=== PATIENT | female | born 1955 | race American Indian/Alaskan Native ===

== ENCOUNTER 2020-07-30 23:08 | Inpatient (IN) | payer MEDICAID, MEDICARE ==
[2020-07-31] MEDS ORDERED: Sodium Chloride 0.9% 10 ML Syringe FLUSH PRN (00:29)
[2020-07-31] MEDS ORDERED: Acetaminophen 325 MG Tab PO PRN (00:29)
[2020-07-31] MEDS ORDERED: diphenhydrAMINE 25 MG Cap PO PRN (00:41)
[2020-07-31] MEDS ORDERED: Piperacillin/Tazobactam 3.375 GM in Sodium Chloride 0.9% 50 ML IV SCH ×2 (00:45→03:30)
[2020-07-31] MEDS ORDERED: 50% Dextrose in Water 50 ML Syringe IVPUSH PRN ×2 (00:55→11:39)
[2020-07-31] MEDS ORDERED: Glucagon,Human Recombinant 1 MG Vial IM PRN ×2 (00:55→11:39)
[2020-07-31] MEDS ORDERED: Sodium Chloride 0.9% 50 ML ONE (02:46)
--- NOTE | 2020-07-31 07:14 | HP ---
CHIEF COMPLAINT: Shortness of breath, sore throat. HISTORY OF PRESENT ILLNESS: A 65-year-old. For the last 9 days, she has had fatigue, then developed a sore throat which had her go into the [facility]. Did test positive for COVID. She was noted to be slightly hypoxic and they did put her on oxygen. Because of this, they did want her put in the hospital, but they did not have any beds and arranged transport to [facility] in [place]. The patient complains of little bit of shortness of breath, but it is not bad. Her main complaint was sore throat and fatigue. She denied any loss of taste or smell. She has had a headache. No nausea, vomiting, or diarrhea, just some mild body aches. PAST MEDICAL HISTORY: Type 2 diabetes mellitus. She had right knee surgery she states. Otherwise, no other significant surgical or medical problems. MEDICATIONS: Alogliptin 25 mg daily, calcium with vitamin D daily, vitamin D3 at 1000 units daily, citalopram 20 mg daily, Benadryl 50 mg at bedtime, losartan 100 mg daily, magnesium oxide 800 mg b.i.d., metformin 1000 mg b.i.d., simvastatin 40 mg daily at bedtime. ALLERGIES: SULFAMETHOXAZOLE, TRIMETHOPRIM. SOCIAL HISTORY: Still smokes occasionally. No alcohol use. FAMILY HISTORY: Sister with lung cancer and brother with prostate cancer. REVIEW OF SYSTEMS: Does report a headache. No vision changes. She has had a cough with some mild shortness of breath and sore throat. No chest pain, nausea, vomiting, diarrhea, or constipation. No urinary problems reported. No swelling in her legs. No skin problems reported. No neurologic complaints reported. OBJECTIVE: VITAL SIGNS: Weight 95 kg, pulse 88, blood pressure 137/80, respirations 18, O2 saturation 95% on room air at present. GENERAL: The patient is alert and oriented. Denies any significant dyspnea or respiratory distress. HEENT: Ears are clear. Pharynx is clear. NECK: Supple. No adenopathy, thyromegaly. LUNGS: Slightly coarse in the bases, but otherwise clear. HEART: Regular without murmurs. ABDOMEN: Soft, nontender. No masses or organomegaly palpated. EXTREMITIES: No edema. Sensation is intact to her lower extremities with no sores. LABORATORY DATA: COVID test was positive. Magnesium normal 1.6. Liver functions were normal other than alkaline phosphatase was slightly elevated at 129, glucose 127, BUN is 12.9, creatinine 0.4, sodium 140, potassium 4.1. Urinalysis was unremarkable. White count 4.9, hemoglobin 12.7, platelets 92,000. Chest x-ray from outside facility showed bilateral infiltrates. ASSESSMENT: 1. Coronavirus disease pneumonitis. We will admit her. Currently, not requiring oxygen. Has been started on dexamethasone at the sending facility. We will continue this, but she should be able to take this orally and use oxygen as needed. We will check a D- dimer to see if she needs anticoagulation. Saline lock her IV as she is taking orally well. The patient was started on IV Zosyn at the outside facility. We will continue this for the time being. Concern may be a bacterial component to her pneumonia. 2. Type 2 diabetes, on insulin. Q.i.d. Accu-Cheks. Continue with her current insulin and oral medication. Transfer her care to the hospitalist service in the morning. Jae Lopez MD /[id number]
[2020-07-31] MEDS: Insulin Lispro 100 Unit/ML 3 ML KwikPen SUBCUT SCH ×4 (08:06→20:51)
[2020-07-31] MEDS: metFORMIN 500 MG Tab PO SCH ×2 (08:40→16:56)
[2020-07-31] MEDS: Citalopram 20 MG Tab PO SCH (08:41)
[2020-07-31] MEDS: Cholecalciferol (Vitamin D3) 25 MCG Tab PO SCH (08:41)
[2020-07-31] MEDS: Magnesium Oxide 400 MG Tab PO SCH ×2 (08:41→20:50)
[2020-07-31] MEDS: Calcium Carbonate/Vitamin D3 1500 MG-400 Units Tab PO SCH (08:41)
[2020-07-31] MEDS: Losartan 50 MG Tab PO SCH (08:42)
[2020-07-31] MEDS ORDERED: Dexamethasone 2 MG Tab PO SCH (09:00)
[2020-07-31] MEDS: Piperacillin/Tazobactam/Dext 3.375 GM in Premix Bag 1 BAG IV SCH ×4 (09:34→22:24)
[2020-07-31] MEDS ORDERED: Insulin Lispro 100 Units/ML 3 ML Vial SUBCUT ONE (11:39)
[2020-07-31] MEDS ORDERED: Insulin Lispro 100 Unit/ML 3 ML KwikPen SUBCUT ONE (12:00)
[2020-07-31] MEDS: Enoxaparin 40 MG/0.4 ML Syringe SUBCUT SCH (13:26)
--- NOTE | 2020-07-31 19:46 | PCM.HP.2 ---
H&P History of Present Illness - General Admit Problem/Dx: Admission Diagnosis/Problem Admission Diagnosis/Problem Pneumonia due to other specified infectious organisms - Related Data Allergies/Adverse Reactions: Allergies Allergy/AdvReac Type Severity Reaction Status Date / Time sulfamethoxazole Allergy itch Verified 07/30/20 23:31 [From Bactrim] trimethoprim [From Bactrim] Allergy itch Verified 07/30/20 23:31 Home Medications: Home Meds Alogliptin Benzoate [Alogliptin] 25 mg PO DAILY 07/31/20 [History] Calcium Carbonate/Vitamin D3 [Calcium 600-Vit D3 400 Tablet] 1 each PO DAILY 07/31/20 [History] Cholecalciferol (Vitamin D3) [Vitamin D] 1,000 unit PO DAILY 07/31/20 [History] Citalopram [Citalopram HBr] 20 mg PO DAILY 07/31/20 [History] Losartan [Cozaar] 100 mg PO DAILY 07/31/20 [History] Magnesium Oxide 800 mg PO BID 07/31/20 [History] Simvastatin 40 mg PO BEDTIME 07/31/20 [History] diphenhydrAMINE [Benadryl] 50 mg PO BEDTIME PRN 07/31/20 [History] metFORMIN [Glucophage] 1,000 mg PO BIDMEALS 07/31/20 [History] Past Medical History HEENT History: Reports: Impaired Vision Respiratory History: Reports: TB Psychiatric History: Reports: Depression Endocrine/Metabolic History: Reports: Diabetes, Type II - Infectious Disease History Infectious Disease History: Reports: Chicken Pox, Shingles, TB - Past Surgical History HEENT Surgical History: Reports: None Respiratory Surgical History: Reports: None GI Surgical History: Reports: Cholecystectomy Female Surgical History: Reports: Hysterectomy Social & Family History - Family History Psychiatric: Reports: Bipolar Endocrine/Metabolic: Reports: Diabetes, type II Oncologic: Reports: Bone, Lung, Prostate - Tobacco Use Tobacco Use Status *Q: Current Every Day Tobacco User Years of Tobacco use: 40 Packs/Tins Daily: 0.5 Used Tobacco, but Quit: No - Caffeine Use Caffeine Use: Reports: Coffee, Soda, Tea - Recreational Drug Use Recreational Drug Use: No Exam - Vital Signs Vital Signs: Last Vital Signs Temp 95.5 F L 07/31/20 19:18 Pulse 70 07/31/20 19:18 Resp 16 07/31/20 19:18 BP 117/54 L 07/31/20 19:18 Pulse Ox 97 07/31/20 19:18 Weight: 209 lb 15.986 oz - Patient Data Lab Results Last 24 hrs: Laboratory Results - last 24 hr 07/31/20 07/31/20 07/31/20 Range/Units 04:20 04:20 04:20 WBC 2.1 L (4.5-11.0) K/uL RBC 4.75 (3.30-5.50) M/uL Hgb 11.9 L (12.0-15.0) g/dL Hct 37.3 (36.0-48.0) % MCV 79 L (80-98) fL MCH 25 L (27-31) pg MCHC 32 (32-36) % Plt Count 101 L (150-400) K/uL D-Dimer, Quantitative 846.69 H (0.0-500.0) ng/mL Sodium 140 (140-148) mmol/L Potassium 4.4 (3.6-5.2) mmol/L Chloride 106 (100-108) mmol/L Carbon Dioxide 23 (21-32) mmol/L Anion Gap 10.6 (5.0-14.0) mmol/L BUN 17 (7-18) mg/dL Creatinine 0.7 (0.6-1.0) mg/dL Est Cr Clr Drug Dosing 73.01 mL/min Estimated GFR (MDRD) > 60 (>60) Glucose 371 H (74-106) mg/dL POC Glucose (74-106) MG/DL Calcium 7.9 L (8.5-10.1) mg/dL Total Bilirubin 1.3 H (0.2-1.0) mg/dL AST 24 (15-37) U/L ALT 23 (12-78) U/L Alkaline Phosphatase 129 H (46-116) U/L Total Protein 6.2 L (6.4-8.2) g/dL Albumin 2.7 L (3.4-5.0) g/dL Globulin 3.5 (2.3-3.5) g/dL Albumin/Globulin Ratio 0.8 L (1.2-2.2) Blood Type 07/31/20 07/31/20 07/31/20 Range/Units 05:00 07:30 11:30 WBC (4.5-11.0) K/uL RBC (3.30-5.50) M/uL Hgb (12.0-15.0) g/dL Hct (36.0-48.0) % MCV (80-98) fL MCH (27-31) pg MCHC (32-36) % Plt Count (150-400) K/uL D-Dimer, Quantitative (0.0-500.0) ng/mL Sodium (140-148) mmol/L Potassium (3.6-5.2) mmol/L Chloride (100-108) mmol/L Carbon Dioxide (21-32) mmol/L Anion Gap (5.0-14.0) mmol/L BUN (7-18) mg/dL Creatinine (0.6-1.0) mg/dL Est Cr Clr Drug Dosing mL/min Estimated GFR (MDRD) (>60) Glucose (74-106) mg/dL POC Glucose 361 H 450 H (74-106) MG/DL Calcium (8.5-10.1) mg/dL Total Bilirubin (0.2-1.0) mg/dL AST (15-37) U/L ALT (12-78) U/L Alkaline Phosphatase (46-116) U/L Total Protein (6.4-8.2) g/dL Albumin (3.4-5.0) g/dL Globulin (2.3-3.5) g/dL Albumin/Globulin Ratio (1.2-2.2) Blood Type A POSITIVE 07/31/20 Range/Units 16:25 WBC (4.5-11.0) K/uL RBC (3.30-5.50) M/uL Hgb (12.0-15.0) g/dL Hct (36.0-48.0) % MCV (80-98) fL MCH (27-31) pg MCHC (32-36) % Plt Count (150-400) K/uL D-Dimer, Quantitative (0.0-500.0) ng/mL Sodium (140-148) mmol/L Potassium (3.6-5.2) mmol/L Chloride (100-108) mmol/L Carbon Dioxide (21-32) mmol/L Anion Gap (5.0-14.0) mmol/L BUN (7-18) mg/dL Creatinine (0.6-1.0) mg/dL Est Cr Clr Drug Dosing mL/min Estimated GFR (MDRD) (>60) Glucose (74-106) mg/dL POC Glucose 333 H (74-106) MG/DL Calcium (8.5-10.1) mg/dL Total Bilirubin (0.2-1.0) mg/dL AST (15-37) U/L ALT (12-78) U/L Alkaline Phosphatase (46-116) U/L Total Protein (6.4-8.2) g/dL Albumin (3.4-5.0) g/dL Globulin (2.3-3.5) g/dL Albumin/Globulin Ratio (1.2-2.2) Blood Type Result Diagrams: 07/31/20 04:20 07/31/20 04:20 Sepsis Event Note - Evaluation Sepsis Screening Result: Sepsis Risk - Focused Exam Vital Signs: Vital Signs Temp Temp Pulse Resp BP BP Pulse Ox 07/31/20 19:18 95.5 F L 70 16 117/54 L 97 07/31/20 18:11 96.6 F L 83 16 141/62 H 07/31/20 18:00 96.6 F L 80 18 141/76 H 07/31/20 17:30 97.9 F 73 16 127/76 07/31/20 17:15 96.6 F L 78 18 125/66 07/31/20 17:00 96.8 F L 67 18 126/58 L 07/31/20 16:45 97.2 F 69 18 118/57 L 07/31/20 14:22 97.4 F 64 16 142/61 H 100 07/31/20 13:02 95 07/31/20 10:33 97 F 75 16 129/55 L 96 07/31/20 08:42 125/67 Orders Last 24hrs: Active Orders 24 hr Category Date Time Status Patient Status [ADT] Routine ADT 07/31/20 00:29 Active Oxygen Therapy [RC] PRN Care 07/31/20 00:29 Active Up With Assistance [RC] ASDIRECTED Care 07/31/20 00:29 Active Verify Patient Consent Obtain [RC] ASDIRECTED Care 07/31/20 12:12 Active Vital Signs [RC] Q4H Care 07/31/20 00:29 Active Consistent Carbohydrate Diet [DIET] Diet 07/31/20 Breakfast Active FRESH FROZEN PLASMA [BBK] DAILY Lab 08/01/20 12:12 Ordered FRESH FROZEN PLASMA [BBK] DAILY Lab 08/02/20 12:12 Ordered GLUCOSE POC LAB TO COLLECT JPM [POC] QIDACANDBED Lab 07/31/20 21:00 Ordered GLUCOSE POC LAB TO COLLECT JPM [POC] QIDACANDBED Lab 08/01/20 07:30 Ordered GLUCOSE POC LAB TO COLLECT JPM [POC] QIDACANDBED Lab 08/01/20 11:30 Ordered GLUCOSE POC LAB TO COLLECT JPM [POC] QIDACANDBED Lab 08/01/20 16:30 Ordered GLUCOSE POC LAB TO COLLECT JPM [POC] QIDACANDBED Lab 08/01/20 21:00 Ordered GLUCOSE POC LAB TO COLLECT JPM [POC] QIDACANDBED Lab 08/02/20 07:30 Ordered GLUCOSE POC LAB TO COLLECT JPM [POC] QIDACANDBED Lab 08/02/20 11:30 Ordered GLUCOSE POC LAB TO COLLECT JPM [POC] QIDACANDBED Lab 08/02/20 16:30 Ordered GLUCOSE POC LAB TO COLLECT JPM [POC] QIDACANDBED Lab 08/02/20 21:00 Ordered GLUCOSE POC LAB TO COLLECT JPM [POC] QIDACANDBED Lab 08/03/20 07:30 Ordered GLUCOSE POC LAB TO COLLECT JPM [POC] QIDACANDBED Lab 08/03/20 11:30 Ordered GLUCOSE POC LAB TO COLLECT JPM [POC] QIDACANDBED Lab 08/03/20 16:30 Ordered GLUCOSE POC LAB TO COLLECT JPM [POC] QIDACANDBED Lab 08/03/20 21:00 Ordered GLUCOSE POC LAB TO COLLECT JPM [POC] QIDACANDBED Lab 08/04/20 07:30 Ordered GLUCOSE POC LAB TO COLLECT JPM [POC] QIDACANDBED Lab 08/04/20 11:30 Ordered GLUCOSE POC LAB TO COLLECT JPM [POC] QIDACANDBED Lab 08/04/20 16:30 Ordered GLUCOSE POC LAB TO COLLECT JPM [POC] QIDACANDBED Lab 08/04/20 21:00 Ordered GLUCOSE POC LAB TO COLLECT JPM [POC] QIDACANDBED Lab 08/05/20 07:30 Ordered GLUCOSE POC LAB TO COLLECT JPM [POC] QIDACANDBED Lab 08/05/20 11:30 Ordered GLUCOSE POC LAB TO COLLECT JPM [POC] QIDACANDBED Lab 08/05/20 16:30 Ordered GLUCOSE POC LAB TO COLLECT JPM [POC] QIDACANDBED Lab 08/05/20 21:00 Ordered GLUCOSE POC LAB TO COLLECT JPM [POC] QIDACANDBED Lab 08/06/20 07:30 Ordered GLUCOSE POC LAB TO COLLECT JPM [POC] QIDACANDBED Lab 08/06/20 11:30 Ordered GLUCOSE POC LAB TO COLLECT JPM [POC] QIDACANDBED Lab 08/06/20 16:30 Ordered GLUCOSE POC LAB TO COLLECT JPM [POC] QIDACANDBED Lab 08/06/20 21:00 Ordered GLUCOSE POC LAB TO COLLECT JPM [POC] QIDACANDBED Lab 08/07/20 07:30 Ordered GLUCOSE POC LAB TO COLLECT JPM [POC] QIDACANDBED Lab 08/07/20 11:30 Ordered GLUCOSE POC LAB TO COLLECT JPM [POC] QIDACANDBED Lab 08/07/20 16:30 Ordered GLUCOSE POC LAB TO COLLECT JPM [POC] QIDACANDBED Lab 08/07/20 21:00 Ordered GLUCOSE POC LAB TO COLLECT JPM [POC] QIDACANDBED Lab 08/08/20 07:30 Ordered GLUCOSE POC LAB TO COLLECT JPM [POC] QIDACANDBED Lab 08/08/20 11:30 Ordered GLUCOSE POC LAB TO COLLECT JPM [POC] QIDACANDBED Lab 08/08/20 16:30 Ordered GLUCOSE POC LAB TO COLLECT JPM [POC] QIDACANDBED Lab 08/08/20 21:00 Ordered GLUCOSE POC LAB TO COLLECT JPM [POC] QIDACANDBED Lab 08/09/20 07:30 Ordered GLUCOSE POC LAB TO COLLECT JPM [POC] QIDACANDBED Lab 08/09/20 11:30 Ordered GLUCOSE POC LAB TO COLLECT JPM [POC] QIDACANDBED Lab 08/09/20 16:30 Ordered GLUCOSE POC LAB TO COLLECT JPM [POC] QIDACANDBED Lab 08/09/20 21:00 Ordered GLUCOSE POC LAB TO COLLECT JPM [POC] QIDACANDBED Lab 08/10/20 07:30 Ordered GLUCOSE POC LAB TO COLLECT JPM [POC] QIDACANDBED Lab 08/10/20 11:30 Ordered GLUCOSE POC LAB TO COLLECT JPM [POC] QIDACANDBED Lab 08/10/20 16:30 Ordered GLUCOSE POC LAB TO COLLECT JPM [POC] QIDACANDBED Lab 08/10/20 21:00 Ordered GLUCOSE POC LAB TO COLLECT JPM [POC] QIDACANDBED Lab 08/11/20 07:30 Ordered GLUCOSE POC LAB TO COLLECT JPM [POC] QIDACANDBED Lab 08/11/20 11:30 Ordered GLUCOSE POC LAB TO COLLECT JPM [POC] QIDACANDBED Lab 08/11/20 16:30 Ordered GLUCOSE POC LAB TO COLLECT JPM [POC] QIDACANDBED Lab 08/11/20 21:00 Ordered GLUCOSE POC LAB TO COLLECT JPM [POC] QIDACANDBED Lab 08/12/20 07:30 Ordered GLUCOSE POC LAB TO COLLECT JPM [POC] QIDACANDBED Lab 08/12/20 11:30 Ordered Acetaminophen [TylenoL] Med 07/31/20 00:29 Active 650 mg PO Q4H PRN Alogliptin Benzoate [Alogliptin] Med 07/31/20 09:00 Active 25 mg PO DAILY Calcium Carbonate/Vitamin D3 [Caltrate 600+D 1500 MG- Med 07/31/20 09:00 Active 400 Units] 1 tab PO DAILY Cholecalciferol (Vitamin D3) [Vitamin D3] Med 07/31/20 09:00 Active 25 mcg PO DAILY Citalopram [Celexa] Med 07/31/20 09:00 Active 20 mg PO DAILY Dextrose 50% in Water Med 07/31/20 00:55 Active 50 ml IVPUSH ASDIRECTED PRN Dextrose 50% in Water Med 07/31/20 11:39 Active 50 ml IVPUSH ASDIRECTED PRN Enoxaparin [Lovenox] Med 07/31/20 14:00 Active 40 mg SUBCUT Q24H Glucagon,Human Recombinant [GlucaGen] Med 07/31/20 00:55 Active 1 mg IM ASDIRECTED PRN Glucagon,Human Recombinant [GlucaGen] Med 07/31/20 11:39 Active 1 mg IM ASDIRECTED PRN Insulin Lispro [HumaLOG] Med 07/31/20 17:00 Active See Protocol SUBCUT QIDACANDBED Losartan [Cozaar] Med 07/31/20 09:00 Active 100 mg PO DAILY Magnesium Oxide Med 07/31/20 09:00 Active 800 mg PO BID Piperacillin/Tazobactam/Dext [Zosyn in Dextrose Iso- Med 07/31/20 10:00 Active Osmotic 3.375 GM] 3.375 gm Premix Bag 1 bag IV Q6H Remdesivir (Eua) [Remdesivir (EUA)] 100 mg Med 08/01/20 14:00 Active Sodium Chloride 0.9% [Normal Saline] 100 ml IV Q24H Simvastatin [Zocor] Med 07/31/20 21:00 Active 40 mg PO BEDTIME Sodium Chloride 0.9% [Saline Flush] Med 07/31/20 00:29 Active 10 ml FLUSH ASDIRECTED PRN dexAMETHasone [Decadron] Med 08/01/20 09:00 Active 6 mg IVPUSH DAILY diphenhydrAMINE [Benadryl] Med 07/31/20 00:41 Active 50 mg PO BEDTIME PRN metFORMIN [Glucophage] Med 07/31/20 08:00 Active 1,000 mg PO BIDMEALS Saline Lock Insert [OM.PC] Routine Oth 07/31/20 00:29 Ordered Transfuse Fresh Frozen Plasma [COMM] DAILY Oth 07/31/20 12:12 Ordered Transfuse Fresh Frozen Plasma [COMM] DAILY Oth 08/01/20 12:12 Ordered Transfuse Fresh Frozen Plasma [COMM] DAILY Ot 08/02/20 12:12 Ordered Resuscitation Status Routine Resus Stat 07/31/20 00:29 Ordered Medication Orders Acetaminophen (Tylenol) 650 mg PO Q4H PRN PRN Reason: Pain (Mild 1-3)/fever Alogliptin Benzoate (Alogliptin) 25 mg PO DAILY [facility] Last Admin: 07/31/20 08:41 Dose: 25 mg Documented by: NICKIE Calcium Carbonate (Caltrate 600+D 1500 Mg-400 Units) 1 tab PO DAILY [facility] Last Admin: 07/31/20 08:41 Dose: 1 tab Documented by: NICKIE Cholecalciferol (Vitamin D3) 25 mcg PO DAILY [facility] Last Admin: 07/31/20 08:41 Dose: 25 mcg Documented by: NICKIE Citalopram Hydrobromide (Celexa) 20 mg PO DAILY [facility] Last Admin: 07/31/20 08:41 Dose: 20 mg Documented by: NICKIE Dexamethasone (Decadron) 6 mg IVPUSH DAILY [facility] Stop: 08/05/20 09:01 Dextrose/Water (Dextrose 50% In Water) 50 ml IVPUSH ASDIRECTED PRN PRN Reason: Hypoglycemia Dextrose/Water (Dextrose 50% In Water) 50 ml IVPUSH ASDIRECTED PRN PRN Reason: Hypoglycemia Diphenhydramine HCl (Benadryl) 50 mg PO BEDTIME PRN PRN Reason: Allergies Enoxaparin Sodium (Lovenox) 40 mg SUBCUT Q24H [facility] Last Admin: 07/31/20 13:26 Dose: 40 mg Documented by: OTONIEL Glucagon (Glucagen) 1 mg IM ASDIRECTED PRN PRN Reason: Hypoglycemia Glucagon (Glucagen) 1 mg IM ASDIRECTED PRN PRN Reason: Hypoglycemia Piperacillin/Tazobactam/ (Dextrose 3.375 gm/ Premix) 50 mls @ 100 mls/hr IV Q6H [facility] Last Admin: 07/31/20 15:51 Dose: 100 mls/hr Documented by: Infusion: 07/31/20 10:04 Dose: 100 mls/hr Documented by: Admin: 07/31/20 09:34 Dose: 100 mls/hr Documented by: NICKIE Remdesivir 100 mg/ Sodium (Chloride) 100 mls @ 100 mls/hr IV Q24H [facility] Stop: 08/04/20 14:59 Insulin Human Lispro (Humalog) 0 unit SUBCUT QIDACANDBED [facility]; Protocol Last Admin: 07/31/20 16:50 Dose: 8 units Documented by: NICKIE Cosigned by: OTONIEL Losartan Potassium (Cozaar) 100 mg PO DAILY [facility] Last Admin: 07/31/20 08:42 Dose: 100 mg Documented by: NICKIE Magnesium Oxide (Magnesium Oxide) 800 mg PO BID [facility] Last Admin: 07/31/20 08:41 Dose: 800 mg Documented by: NICKIE Metformin HCl (Glucophage) 1,000 mg PO BIDMEALS [facility] Last Admin: 07/31/20 16:56 Dose: 1,000 mg Documented by: Admin: 07/31/20 08:40 Dose: 1,000 mg Documented by: NICKIE Simvastatin (Zocor) 40 mg PO BEDTIME [facility]UL[facility] Sodium Chloride (Saline Flush) 10 ml FLUSH ASDIRECTED PRN PRN Reason: Keep Vein Open
[2020-07-31] MEDS: Simvastatin 20 MG Tab PO SCH (20:50)
[2020-07-31] MEDS ORDERED: Dexamethasone 4 MG/ML SDV IVPUSH SCH (21:20)
--- NOTE | 2020-07-31 21:33 | PCM.PN ---
- General Info Date of Service: 07/31/20 Subjective Update: Ms. Dumont is a 65-year-old woman who was admitted as a direct admission from the emergency department in [place] with shortness of breath and weakness secondary to bilateral pneumonia and COVID-19. She had been ill for a few days and had noted some temperature elevations progressive shortness of breath associated with cough as well as weakness. On evaluation in the emergency department at [place] she was found to be Covid positive. Beds were not avail able there and she was transferred here for admission. While in cast like she was noted to be hypoxic but by the time she arrived here had normal oxygenation on room air. During the night she was noted to have hypoxia and now is on supplemental oxygen. She reports that she is feeling somewhat better since admission. Functional Status: Reports: Tolerating Diet, Ambulating, Urinating - Review of Systems General: Reports: Fever, Weakness, Fatigue. Denies: Chills Pulmonary: Reports: Shortness of Breath, Cough. Denies: Pleuritic Chest Pain, Sputum, Hemoptysis, Wheezing Cardiovascular: Reports: Dyspnea on Exertion. Denies: Chest Pain, Palpitations, Orthopnea, PND, Edema, Lightheadedness Gastrointestinal: Reports: No Symptoms Genitourinary: Reports: No Symptoms - Patient Data Vitals - Most Recent: Last Vital Signs Temp 95.5 F L 07/31/20 19:18 Pulse 70 07/31/20 19:18 Resp 16 07/31/20 19:18 BP 117/54 L 07/31/20 19:18 Pulse Ox 96 07/31/20 20:00 Weight - Most Recent: 209 lb 15.986 oz I&O - Last 24 Hours: Intake & Output 07/31/20 07/31/20 07/31/20 06:59 14:59 22:59 Intake Total 813 247 8402 Balance 191 558 [id number] Lab Results Last 24 Hours: Laboratory Results - last 24 hr 07/31/20 07/31/20 07/31/20 Range/Units 04:20 04:20 04:20 WBC 2.1 L (4.5-11.0) K/uL RBC 4.75 (3.30-5.50) M/uL Hgb 11.9 L (12.0-15.0) g/dL Hct 37.3 (36.0-48.0) % MCV 79 L (80-98) fL MCH 25 L (27-31) pg MCHC 32 (32-36) % Plt Count 101 L (150-400) K/uL D-Dimer, Quantitative 846.69 H (0.0-500.0) ng/mL Sodium 140 (140-148) mmol/L Potassium 4.4 (3.6-5.2) mmol/L Chloride 106 (100-108) mmol/L Carbon Dioxide 23 (21-32) mmol/L Anion Gap 10.6 (5.0-14.0) mmol/L BUN 17 (7-18) mg/dL Creatinine 0.7 (0.6-1.0) mg/dL Est Cr Clr Drug Dosing 73.01 mL/min Estimated GFR (MDRD) > 60 (>60) Glucose 371 H (74-106) mg/dL POC Glucose (74-106) MG/DL Calcium 7.9 L (8.5-10.1) mg/dL Total Bilirubin 1.3 H (0.2-1.0) mg/dL AST 24 (15-37) U/L ALT 23 (12-78) U/L Alkaline Phosphatase 129 H (46-116) U/L Total Protein 6.2 L (6.4-8.2) g/dL Albumin 2.7 L (3.4-5.0) g/dL Globulin 3.5 (2.3-3.5) g/dL Albumin/Globulin Ratio 0.8 L (1.2-2.2) Blood Type 07/31/20 07/31/20 07/31/20 Range/Units 05:00 07:30 11:30 WBC (4.5-11.0) K/uL RBC (3.30-5.50) M/uL Hgb (12.0-15.0) g/dL Hct (36.0-48.0) % MCV (80-98) fL MCH (27-31) pg MCHC (32-36) % Plt Count (150-400) K/uL D-Dimer, Quantitative (0.0-500.0) ng/mL Sodium (140-148) mmol/L Potassium (3.6-5.2) mmol/L Chloride (100-108) mmol/L Carbon Dioxide (21-32) mmol/L Anion Gap (5.0-14.0) mmol/L BUN (7-18) mg/dL Creatinine (0.6-1.0) mg/dL Est Cr Clr Drug Dosing mL/min Estimated GFR (MDRD) (>60) Glucose (74-106) mg/dL POC Glucose 361 H 450 H (74-106) MG/DL Calcium (8.5-10.1) mg/dL Total Bilirubin (0.2-1.0) mg/dL AST (15-37) U/L ALT (12-78) U/L Alkaline Phosphatase (46-116) U/L Total Protein (6.4-8.2) g/dL Albumin (3.4-5.0) g/dL Globulin (2.3-3.5) g/dL Albumin/Globulin Ratio (1.2-2.2) Blood Type A POSITIVE 07/31/20 07/31/20 Range/Units 16:25 20:25 WBC (4.5-11.0) K/uL RBC (3.30-5.50) M/uL Hgb (12.0-15.0) g/dL Hct (36.0-48.0) % MCV (80-98) fL MCH (27-31) pg MCHC (32-36) % Plt Count (150-400) K/uL D-Dimer, Quantitative (0.0-500.0) ng/mL Sodium (140-148) mmol/L Potassium (3.6-5.2) mmol/L Chloride (100-108) mmol/L Carbon Dioxide (21-32) mmol/L Anion Gap (5.0-14.0) mmol/L BUN (7-18) mg/dL Creatinine (0.6-1.0) mg/dL Est Cr Clr Drug Dosing mL/min Estimated GFR (MDRD) (>60) Glucose (74-106) mg/dL POC Glucose 333 H 400 H (74-106) MG/DL Calcium (8.5-10.1) mg/dL Total Bilirubin (0.2-1.0) mg/dL AST (15-37) U/L ALT (12-78) U/L Alkaline Phosphatase (46-116) U/L Total Protein (6.4-8.2) g/dL Albumin (3.4-5.0) g/dL Globulin (2.3-3.5) g/dL Albumin/Globulin Ratio (1.2-2.2) Blood Type Med Orders - Current: Current Medications Acetaminophen (Tylenol) 650 mg PO Q4H PRN PRN Reason: Pain (Mild 1-3)/fever Alogliptin Benzoate (Alogliptin) 25 mg PO DAILY [facility] Last Admin: 07/31/20 08:41 Dose: 25 mg Documented by: Calcium Carbonate (Caltrate 600+D 1500 Mg-400 Units) 1 tab PO DAILY [facility] Last Admin: 07/31/20 08:41 Dose: 1 tab Documented by: Cholecalciferol (Vitamin D3) 25 mcg PO DAILY [facility] Last Admin: 07/31/20 08:41 Dose: 25 mcg Documented by: Citalopram Hydrobromide (Celexa) 20 mg PO DAILY [facility] Last Admin: 07/31/20 08:41 Dose: 20 mg Documented by: Dexamethasone (Decadron) 6 mg IVPUSH DAILY [facility] Stop: 08/04/20 09:01 Dextrose/Water (Dextrose 50% In Water) 50 ml IVPUSH ASDIRECTED PRN PRN Reason: Hypoglycemia Dextrose/Water (Dextrose 50% In Water) 50 ml IVPUSH ASDIRECTED PRN PRN Reason: Hypoglycemia Diphenhydramine HCl (Benadryl) 50 mg PO BEDTIME PRN PRN Reason: Allergies Enoxaparin Sodium (Lovenox) 40 mg SUBCUT Q24H [facility] Last Admin: 07/31/20 13:26 Dose: 40 mg Documented by: Glucagon (Glucagen) 1 mg IM ASDIRECTED PRN PRN Reason: Hypoglycemia Glucagon (Glucagen) 1 mg IM ASDIRECTED PRN PRN Reason: Hypoglycemia Piperacillin/Tazobactam/ (Dextrose 3.375 gm/ Premix) 50 mls @ 100 mls/hr IV Q6H [facility] Last Admin: 07/31/20 20:52 Dose: 100 mls/hr Documented by: Remdesivir 100 mg/ Sodium (Chloride) 100 mls @ 100 mls/hr IV Q24H [facility] Stop: 08/04/20 14:59 Insulin Glargine (Lantus Solostar) 16 units SUBCUT BEDTIME [facility] Insulin Human Lispro (Humalog) 0 unit SUBCUT QIDACANDBED [facility]; Protocol Last Admin: 07/31/20 20:51 Dose: 10 units Documented by: Losartan Potassium (Cozaar) 100 mg PO DAILY [facility] Last Admin: 07/31/20 08:42 Dose: 100 mg Documented by: Magnesium Oxide (Magnesium Oxide) 800 mg PO BID [facility] Last Admin: 07/31/20 20:50 Dose: 800 mg Documented by: Metformin HCl (Glucophage) 1,000 mg PO BIDMEALS [facility] Last Admin: 07/31/20 16:56 Dose: 1,000 mg Documented by: Simvastatin (Zocor) 40 mg PO BEDTIME [facility] Last Admin: 07/31/20 20:50 Dose: 40 mg Documented by: Sodium Chloride (Saline Flush) 10 ml FLUSH ASDIRECTED PRN PRN Reason: Keep Vein Open Discontinued Medications Dexamethasone (Dexamethasone) 6 mg PO DAILY [facility] Last Admin: 07/31/20 08:41 Dose: 6 mg Documented by: Dexamethasone (Decadron) 6 mg IVPUSH DAILY [facility] Stop: 08/05/20 09:01 Piperacillin Sod/Tazobactam (Sod 3.375 gm/ Sodium Chloride) 50 mls @ 100 mls/hr IV Q6H [facility] Piperacillin Sod/Tazobactam (Sod 3.375 gm/ Sodium Chloride) 50 mls @ 100 mls/hr IV Q6H [facility] Last Admin: 07/31/20 02:54 Dose: 100 mls/hr Documented by: Sodium Chloride (Normal Saline) Confirm Administered Dose 50 mls @ as directed .ROUTE .STK-MED ONE Stop: 07/31/20 02:47 Last Admin: 07/31/20 03:00 Dose: Not Given Documented by: Remdesivir 200 mg/ Sodium (Chloride) 250 mls @ 250 mls/hr IV ONETIME ONE Stop: 07/31/20 14:59 Last Admin: 07/31/20 13:27 Dose: 250 mls/hr Documented by: Insulin Human Lispro (Humalog) 0 unit SUBCUT QIDACANDBED [facility]; Protocol Last Admin: 07/31/20 14:42 Dose: Not Given Documented by: Insulin Human Lispro (Humalog) 10 unit SUBCUT ONETIME ONE; Protocol Stop: 07/31/20 12:01 Last Admin: 07/31/20 12:17 Dose: 10 units Documented by: - Exam Quality Assessment: Supplemental Oxygen, DVT Prophylaxis General: Alert, Oriented, Cooperative, Mild Distress Lungs: Decreased Breath Sounds, Rales. No: Crackles, Rhonchi, Wheezing Cardiovascular: Regular Rate, Regular Rhythm, No Murmurs GI/Abdominal Exam: Soft, Non-Tender, No Organomegaly, No Distention Extremities: Non-Tender, No Pedal Edema Sepsis Event Note - Evaluation Sepsis Screening Result: Sepsis Risk - Focused Exam Vital Signs: Vital Signs Temp Temp Pulse Resp BP Pulse Ox 07/31/20 20:00 96 07/31/20 19:18 95.5 F L 70 16 117/54 L 97 07/31/20 18:11 96.6 F L 83 16 141/62 H 07/31/20 18:00 96.6 F L 80 18 141/76 H 07/31/20 17:30 97.9 F 73 16 127/76 07/31/20 17:15 96.6 F L 78 18 125/66 07/31/20 17:00 96.8 F L 67 18 126/58 L 07/31/20 16:45 97.2 F 69 18 118/57 L 07/31/20 14:22 97.4 F 64 16 142/61 H 100 07/31/20 13:02 95 07/31/20 10:33 97 F 75 16 129/55 L 96 - Problem List Review Problem List Initiated/Reviewed/Updated: Yes - My Orders Last 24 Hours: My Active Orders 07/31/20 11:39 Dextrose 50% in Water 50 ml IVPUSH ASDIRECTED PRN Glucagon,Human Recombinant [GlucaGen] 1 mg IM ASDIRECTED PRN 07/31/20 12:12 Verify Patient Consent Obtain [RC] ASDIRECTED Transfuse Fresh Frozen Plasma [COMM] DAILY 07/31/20 14:00 Enoxaparin [Lovenox] 40 mg SUBCUT Q24H 07/31/20 21:20 dexAMETHasone [Decadron] 6 mg IVPUSH DAILY 07/31/20 21:30 Insulin Glarg,Human.Rec.Analog [LantUS Solostar] 16 units SUBCUT BEDTIME 08/01/20 05:00 CBC WITH AUTO DIFF [HEME] Timed COMPREHENSIVE METABOLIC PN,CMP [CHEM] Timed 08/01/20 05:11 CRP [C-REACTIVE PROTEIN] [CHEM] AM D Dimer [D-DIMER QUANTITATIVE] [COAG] AM FERRITIN [CHEM] AM 08/01/20 12:12 FRESH FROZEN PLASMA [BBK] DAILY Transfuse Fresh Frozen Plasma [COMM] DAILY 08/01/20 14:00 Remdesivir (Eua) [Remdesivir (EUA)] 100 mg Sodium Chloride 0.9% [Normal Saline] 100 ml IV Q24H 08/02/20 12:12 FRESH FROZEN PLASMA [BBK] DAILY Transfuse Fresh Frozen Plasma [COMM] DAILY - Plan Plan:: ASSESSMENT AND PLAN [id number] of progressive weakness and shortness of breath. Hypoxia has been documented after admission. -Supportive care -Limit IV fluids -Remdesivir 200 mg IV today, then 100 mg IV daily x4 days starting tomorrow -Decadron 6 mg IV daily x5 days, today is day 1 of 5 -Convalescent plasma 1 unit daily x3 days, today is day 1 of 3 HYPOXIC RESPIRATORY COMPROMISE-secondary to bilateral pneumonia with COVID-19 -Continuous pulse oximetry -Supplemental oxygen as needed TYPE 2 DIABETES MELLITUS -Continue usual dose of Metformin -4 times daily glucometers -Start Lantus insulin 16 units at bedtime -Medium dose sliding scale Humalog MAINTENANCE ISSUES -DVT prophylaxis; Lovenox 40 mg subcu daily -GI prophylaxis; not indicated -Sun catheter; not indicated -Nutrition; consistent carb diet -Nicotine dependence; not required CODE STATUS-FULL CODE ADMISSION STATUS-patient will be admitted to inpatient status, expect at least a 2 night hospital stay for evaluation and management of problems as outlined above. At the time of this admission I do not reasonably expected evaluation and management of this problem will require more than a 96 hour hospital stay. DISPOSITION-anticipate discharge to home after the hospital stay. PRIMARY CARE PROVIDER-she is from out of the area and receives her primary care in [facility]
[2020-07-31] MEDS: Insulin Glargine,Human Rec. Analog 100 Units/ML 3 ML Pen SUBCUT SCH (22:50)
[2020-08-01] MEDS: Piperacillin/Tazobactam/Dext 3.375 GM in Premix Bag 1 BAG IV SCH ×2 (04:16→10:31)
[2020-08-01] MEDS ORDERED: Dexamethasone 4 MG/ML SDV IVPUSH SCH ×2 (09:00→16:00)
[2020-08-01] MEDS: metFORMIN 500 MG Tab PO SCH ×2 (09:02→16:35)
[2020-08-01] MEDS: Citalopram 20 MG Tab PO SCH (09:02)
[2020-08-01] MEDS: Calcium Carbonate/Vitamin D3 1500 MG-400 Units Tab PO SCH (09:02)
[2020-08-01] MEDS: Cholecalciferol (Vitamin D3) 25 MCG Tab PO SCH (09:02)
[2020-08-01] MEDS: Magnesium Oxide 400 MG Tab PO SCH ×2 (09:02→21:13)
[2020-08-01] MEDS: Losartan 50 MG Tab PO SCH (09:03)
[2020-08-01] MEDS: Insulin Lispro 100 Unit/ML 3 ML KwikPen SUBCUT SCH ×4 (09:04→21:10)
[2020-08-01] MEDS ORDERED: REMDESIVIR (EUA) 100 MG in Sodium Chloride 0.9% 100 ML IV SCH (14:00)
[2020-08-01] MEDS: Enoxaparin 40 MG/0.4 ML Syringe SUBCUT SCH (14:19)
--- NOTE | 2020-08-01 15:51 | PCM.PN ---
- General Info Date of Service: 08/01/20 Subjective Update: Ms. Dumont has shown good improvement over the last 24 hours. She is no longer requiring supplemental oxygen, vital signs have been good and she has been afebrile. She denies shortness of breath. Energy level has improved and appetite is also better. Functional Status: Reports: Tolerating Diet, Ambulating, Urinating - Review of Systems General: Reports: Weakness, Fatigue. Denies: Fever, Chills Pulmonary: Reports: No Symptoms Cardiovascular: Reports: No Symptoms Gastrointestinal: Reports: No Symptoms - Patient Data Vitals - Most Recent: Last Vital Signs Temp 96.8 F L 08/01/20 10:34 Pulse 62 08/01/20 14:35 Resp 18 08/01/20 14:35 BP 119/59 L 08/01/20 14:35 Pulse Ox 92 L 08/01/20 14:35 Weight - Most Recent: 209 lb 15.986 oz I&O - Last 24 Hours: Intake & Output 08/01/20 08/01/20 08/01/20 06:59 14:59 22:59 Intake Total 150 270 Balance 150 270 Lab Results Last 24 Hours: Laboratory Results - last 24 hr 07/31/20 07/31/20 07/31/20 Range/Units 05:00 16:25 20:25 WBC (4.5-11.0) K/uL RBC (3.30-5.50) M/uL Hgb (12.0-15.0) g/dL Hct (36.0-48.0) % MCV (80-98) fL MCH (27-31) pg MCHC (32-36) % Plt Count (150-400) K/uL Neut % (Auto) (36-66) % Lymph % (Auto) (24-44) % [place] % (Auto) (2-6) % Eos % (Auto) (2-4) % Baso % (Auto) (0-1) % D-Dimer, Quantitative (0.0-500.0) ng/mL Sodium (140-148) mmol/L Potassium (3.6-5.2) mmol/L Chloride (100-108) mmol/L Carbon Dioxide (21-32) mmol/L Anion Gap (5.0-14.0) mmol/L BUN (7-18) mg/dL Creatinine (0.6-1.0) mg/dL Est Cr Clr Drug Dosing mL/min Estimated GFR (MDRD) (>60) Glucose (74-106) mg/dL POC Glucose 333 H 400 H (74-106) MG/DL Calcium (8.5-10.1) mg/dL Ferritin (8-388) ng/ml Total Bilirubin (0.2-1.0) mg/dL AST (15-37) U/L ALT (12-78) U/L Alkaline Phosphatase (46-116) U/L C-Reactive Protein (0.0-0.3) mg/dL Total Protein (6.4-8.2) g/dL Albumin (3.4-5.0) g/dL Globulin (2.3-3.5) g/dL Albumin/Globulin Ratio (1.2-2.2) Blood Type A POSITIVE 08/01/20 08/01/20 08/01/20 Range/Units 04:50 04:50 04:50 WBC 3.8 L (4.5-11.0) K/uL RBC 4.55 (3.30-5.50) M/uL Hgb 11.4 L (12.0-15.0) g/dL Hct 35.7 L (36.0-48.0) % MCV 79 L (80-98) fL MCH 25 L (27-31) pg MCHC 32 (32-36) % Plt Count 115 L (150-400) K/uL Neut % (Auto) 79 H (36-66) % Lymph % (Auto) 16 L (24-44) % Vil[place] % (Auto) 5 (2-6) % Eos % (Auto) 0 L (2-4) % Baso % (Auto) 0 (0-1) % D-Dimer, Quantitative 535.05 H (0.0-500.0) ng/mL Sodium 140 (140-148) mmol/L Potassium 4.3 (3.6-5.2) mmol/L Chloride 105 (100-108) mmol/L Carbon Dioxide 26 (21-32) mmol/L Anion Gap 9.3 (5.0-14.0) mmol/L BUN 21 H (7-18) mg/dL Creatinine 0.7 (0.6-1.0) mg/dL Est Cr Clr Drug Dosing 73.41 mL/min Estimated GFR (MDRD) > 60 (>60) Glucose 397 H (74-106) mg/dL POC Glucose (74-106) MG/DL Calcium 8.5 (8.5-10.1) mg/dL Ferritin (8-388) ng/ml Total Bilirubin 0.7 (0.2-1.0) mg/dL AST 19 (15-37) U/L ALT 28 (12-78) U/L Alkaline Phosphatase 120 H (46-116) U/L C-Reactive Protein (0.0-0.3) mg/dL Total Protein 6.2 L (6.4-8.2) g/dL Albumin 2.7 L (3.4-5.0) g/dL Globulin 3.5 (2.3-3.5) g/dL Albumin/Globulin Ratio 0.8 L (1.2-2.2) Blood Type 08/01/20 08/01/20 08/01/20 Range/Units 04:50 07:30 11:30 WBC (4.5-11.0) K/uL RBC (3.30-5.50) M/uL Hgb (12.0-15.0) g/dL Hct (36.0-48.0) % MCV (80-98) fL MCH (27-31) pg MCHC (32-36) % Plt Count (150-400) K/uL Neut % (Auto) (36-66) % Lymph % (Auto) (24-44) % [place] % (Auto) (2-6) % Eos % (Auto) (2-4) % Baso % (Auto) (0-1) % D-Dimer, Quantitative (0.0-500.0) ng/mL Sodium (140-148) mmol/L Potassium (3.6-5.2) mmol/L Chloride (100-108) mmol/L Carbon Dioxide (21-32) mmol/L Anion Gap (5.0-14.0) mmol/L BUN (7-18) mg/dL Creatinine (0.6-1.0) mg/dL Est Cr Clr Drug Dosing mL/min Estimated GFR (MDRD) (>60) Glucose (74-106) mg/dL POC Glucose 401 H 367 H (74-106) MG/DL Calcium (8.5-10.1) mg/dL Ferritin 61 (8-388) ng/ml Total Bilirubin (0.2-1.0) mg/dL AST (15-37) U/L ALT (12-78) U/L Alkaline Phosphatase (46-116) U/L C-Reactive Protein 2.47 H (0.0-0.3) mg/dL Total Protein (6.4-8.2) g/dL Albumin (3.4-5.0) g/dL Globulin (2.3-3.5) g/dL Albumin/Globulin Ratio (1.2-2.2) Blood Type Med Orders - Current: Current Medications Acetaminophen (Tylenol) 650 mg PO Q4H PRN PRN Reason: Pain (Mild 1-3)/fever Alogliptin Benzoate (Alogliptin) 25 mg PO DAILY [facility] Last Admin: 08/01/20 09:02 Dose: 25 mg Documented by: Calcium Carbonate (Caltrate 600+D 1500 Mg-400 Units) 1 tab PO DAILY [facility] Last Admin: 08/01/20 09:02 Dose: 1 tab Documented by: Cholecalciferol (Vitamin D3) 25 mcg PO DAILY [facility] Last Admin: 08/01/20 09:02 Dose: 25 mcg Documented by: Citalopram Hydrobromide (Celexa) 20 mg PO DAILY [facility] Last Admin: 08/01/20 09:02 Dose: 20 mg Documented by: Dexamethasone (Decadron) 6 mg IVPUSH Q24H [facility] Stop: 08/04/20 16:01 Dextrose/Water (Dextrose 50% In Water) 50 ml IVPUSH ASDIRECTED PRN PRN Reason: Hypoglycemia Dextrose/Water (Dextrose 50% In Water) 50 ml IVPUSH ASDIRECTED PRN PRN Reason: Hypoglycemia Diphenhydramine HCl (Benadryl) 50 mg PO BEDTIME PRN PRN Reason: Allergies Enoxaparin Sodium (Lovenox) 40 mg SUBCUT Q24H [facility] Last Admin: 08/01/20 14:19 Dose: 40 mg Documented by: Glucagon (Glucagen) 1 mg IM ASDIRECTED PRN PRN Reason: Hypoglycemia Glucagon (Glucagen) 1 mg IM ASDIRECTED PRN PRN Reason: Hypoglycemia Remdesivir 100 mg/ Sodium (Chloride) 100 mls @ 100 mls/hr IV Q24H [facility] Stop: 08/04/20 14:59 Last Admin: 08/01/20 14:18 Dose: 100 mls/hr Documented by: Insulin Glargine (Lantus Solostar) 16 units SUBCUT BEDTIME [facility] Last Admin: 07/31/20 22:50 Dose: 16 units Documented by: Insulin Human Lispro (Humalog) 0 unit SUBCUT QIDACANDBED [facility]; Protocol Last Admin: 08/01/20 11:51 Dose: 10 units Documented by: Losartan Potassium (Cozaar) 100 mg PO DAILY [facility] Last Admin: 08/01/20 09:03 Dose: 100 mg Documented by: Magnesium Oxide (Magnesium Oxide) 800 mg PO BID [facility] Last Admin: 08/01/20 09:02 Dose: 800 mg Documented by: Metformin HCl (Glucophage) 1,000 mg PO BIDMEALS [facility] Last Admin: 08/01/20 09:02 Dose: 1,000 mg Documented by: Simvastatin (Zocor) 40 mg PO BEDTIME [facility] Last Admin: 07/31/20 20:50 Dose: 40 mg Documented by: Sodium Chloride (Saline Flush) 10 ml FLUSH ASDIRECTED PRN PRN Reason: Keep Vein Open Discontinued Medications Dexamethasone (Dexamethasone) 6 mg PO DAILY [facility] Last Admin: 07/31/20 08:41 Dose: 6 mg Documented by: Dexamethasone (Decadron) 6 mg IVPUSH DAILY [facility] Stop: 08/04/20 09:01 Last Admin: 07/31/20 22:51 Dose: 6 mg Documented by: Piperacillin Sod/Tazobactam (Sod 3.375 gm/ Sodium Chloride) 50 mls @ 100 mls/hr IV Q6H [facility] Piperacillin Sod/Tazobactam (Sod 3.375 gm/ Sodium Chloride) 50 mls @ 100 mls/hr IV Q6H [facility] Last Admin: 07/31/20 02:54 Dose: 100 mls/hr Documented by: Sodium Chloride (Normal Saline) Confirm Administered Dose 50 mls @ as directed .ROUTE .STK-MED ONE Stop: 07/31/20 02:47 Last Admin: 07/31/20 03:00 Dose: Not Given Documented by: Piperacillin/Tazobactam/ (Dextrose 3.375 gm/ Premix) 50 mls @ 100 mls/hr IV Q6H [facility] Last Admin: 08/01/20 10:31 Dose: 100 mls/hr Documented by: Remdesivir 200 mg/ Sodium (Chloride) 250 mls @ 250 mls/hr IV ONETIME ONE Stop: 07/31/20 14:59 Last Admin: 07/31/20 13:27 Dose: 250 mls/hr Documented by: Insulin Human Lispro (Humalog) 0 unit SUBCUT QIDACANDBED [facility]; Protocol Last Admin: 07/31/20 14:42 Dose: Not Given Documented by: Insulin Human Lispro (Humalog) 10 unit SUBCUT ONETIME ONE; Protocol Stop: 07/31/20 12:01 Last Admin: 07/31/20 12:17 Dose: 10 units Documented by: - Exam Quality Assessment: DVT Prophylaxis General: Alert, Oriented, Cooperative, Mild Distress Lungs: Clear to Auscultation, Normal Respiratory Effort Cardiovascular: Regular Rate, Regular Rhythm, No Murmurs GI/Abdominal Exam: Soft, Non-Tender, No Organomegaly, No Distention Extremities: Non-Tender, No Pedal Edema Sepsis Event Note - Evaluation Sepsis Screening Result: Sepsis Risk - Focused Exam Vital Signs: Vital Signs Temp Pulse Resp BP BP Pulse Ox 08/01/20 14:35 62 18 119/59 L 92 L 08/01/20 12:21 94 L 08/01/20 10:34 96.8 F L 66 18 135/63 95 08/01/20 09:03 132/64 08/01/20 07:32 96.1 F L 63 18 132/64 95 08/01/20 07:17 96 - Problem List Review Problem List Initiated/Reviewed/Updated: Yes - My Orders Last 24 Hours: My Active Orders 07/31/20 21:30 Insulin Glarg,Human.Rec.Analog [LantUS Solostar] 16 units SUBCUT BEDTIME 08/01/20 12:12 Transfuse Fresh Frozen Plasma [COMM] DAILY 08/01/20 14:00 Remdesivir (Eua) [Remdesivir (EUA)] 100 mg Sodium Chloride 0.9% [Normal Saline] 100 ml IV Q24H 08/01/20 16:00 dexAMETHasone [Decadron] 6 mg IVPUSH Q24H 08/02/20 05:00 CBC WITH AUTO DIFF [HEME] Timed COMPREHENSIVE METABOLIC PN,CMP [CHEM] Timed 08/02/20 05:11 CRP [C-REACTIVE PROTEIN] [CHEM] AM D Dimer [D-DIMER QUANTITATIVE] [COAG] AM FERRITIN [CHEM] AM 08/02/20 12:12 FRESH FROZEN PLASMA [BBK] DAILY Transfuse Fresh Frozen Plasma [COMM] DAILY - Plan Plan:: ASSESSMENT AND PLAN [id number] of progressive weakness and shortness of breath. Hypoxia has resolved and she is no longer requiring supplemental oxygen -Supportive care -Limit IV fluids -Remdesivir 200 mg IV today, then 100 mg IV daily x4 days, today is day 1 of 4 -Decadron 6 mg IV daily x5 days, today is day 2 of 5 -Convalescent plasma 1 unit daily x3 days, today is day 2 of 3 HYPOXIC RESPIRATORY COMPROMISE-secondary to bilateral pneumonia with COVID-19 -Continuous pulse oximetry -Supplemental oxygen as needed TYPE 2 DIABETES MELLITUS-glucose levels elevated likely secondary to current therapy with Decadron -Continue usual dose of Metformin -4 times daily glucometers -Lantus insulin 16 units at bedtime -Medium dose sliding scale Humalog MAINTENANCE ISSUES -DVT prophylaxis; Lovenox 40 mg subcu daily -GI prophylaxis; not indicated -Sun catheter; not indicated -Nutrition; consistent carb diet -Nicotine dependence; not required CODE STATUS-FULL CODE ADMISSION STATUS-patient will be admitted to inpatient status, expect at least a 2 night hospital stay for evaluation and management of problems as outlined above. At the time of this admission I do not reasonably expected evaluation and management of this problem will require more than a 96 hour hospital stay. DISPOSITION-anticipate discharge to home after the hospital stay. PRIMARY CARE PROVIDER-she is from out of the area and receives her primary care in [facility]
[2020-08-01] MEDS: Insulin Glargine,Human Rec. Analog 100 Units/ML 3 ML Pen SUBCUT SCH (21:11)
[2020-08-01] MEDS: Simvastatin 20 MG Tab PO SCH (21:13)
[2020-08-02] MEDS: metFORMIN 500 MG Tab PO SCH (07:59)
[2020-08-02] MEDS: Insulin Lispro 100 Unit/ML 3 ML KwikPen SUBCUT SCH ×2 (08:00→11:46)
[2020-08-02] MEDS: Losartan 50 MG Tab PO SCH (08:01)
[2020-08-02] MEDS: Cholecalciferol (Vitamin D3) 25 MCG Tab PO SCH (08:01)
[2020-08-02] MEDS: Magnesium Oxide 400 MG Tab PO SCH (08:01)
[2020-08-02] MEDS: Calcium Carbonate/Vitamin D3 1500 MG-400 Units Tab PO SCH (08:02)
[2020-08-02] MEDS: Citalopram 20 MG Tab PO SCH (08:02)
--- NOTE | 2020-08-02 12:40 | PCM.DCSUM1 ---
Discharge Summary - Hospital Course Brief History: Ms. Dumont is a 65-year-old woman who was admitted as a direct admission from [place] with weakness, hypoxia, and shortness of breath secondary to COVID-19. - Discharge Data Discharge Date: 08/02/20 Discharge Disposition: Home, Self-Care 01 Condition: Fair - Referral to Home Health Primary Care Physician: PCP None - Discharge Diagnosis/Problem(s) (1) Hypoxia SNOMED Code(s): 075394095 ICD Code: R09.02 - HYPOXEMIA Status: Acute Current Visit: Yes (2) COVID-19 SNOMED Code(s): 968008572 ICD Code: U07.1 - COVID-19 Status: Acute Current Visit: Yes (3) Type 2 diabetes mellitus SNOMED Code(s): 02115051 ICD Code: E11.9 - TYPE 2 DIABETES MELLITUS WITHOUT COMPLICATIONS Status: Chronic Current Visit: No - Patient Summary/Data Hospital Course: Ms. Dumont is a 65-year-old woman who was admitted as a direct admission from the emergency department in [place] with shortness of breath and weakness secondary to bilateral pneumonia and COVID-19. She had been ill for a few days and had noted some temperature elevations progressive shortness of breath associated with cough as well as weakness. On evaluation in the emergency department at [place] she was found to be Covid positive. Beds were not available there and she was transferred here for admission. While in cast like she was noted to be hypoxic but by the time she arrived here had normal oxygenation on room air. During the night she was noted to have hypoxia and was placed on supplemental oxygen. Because of the hypoxia she was treated with remdesivir, convalescent plasma, and Decadron while hospitalized. By the time of discharge hypoxia had resolved and she was otherwise feeling fairly well. She was treated with enoxaparin for DVT prophylaxis during hospitalization. The enoxaparin will be continued daily for an additional 10 days. Activity will be as tolerated and she will resume her usual diabetic diet. Follow-up appointment will be scheduled with her primary care provider within 1 week. - Patient Instructions Diet: Diabetic Diet Activity: As Tolerated Other/Special Instructions: Enoxaparin 40 mg subcu daily for an additional 10 days. Please schedule follow-up appointment with primary care provider within 1 week. - Discharge Plan *PRESCRIPTION DRUG MONITORING PROGRAM REVIEWED*: Not Applicable *COPY OF PRESCRIPTION DRUG MONITORING REPORT IN PATIENT MALIKA: Not Applicable Prescriptions/Med Rec: Enoxaparin [Lovenox] 40 mg SUBCUT Q24H #10 syringe Home Medications: Home Meds Alogliptin Benzoate [Alogliptin] 25 mg PO DAILY 07/31/20 [History] Calcium Carbonate/Vitamin D3 [Calcium 600-Vit D3 400 Tablet] 1 each PO DAILY 07/31/20 [History] Cholecalciferol (Vitamin D3) [Vitamin D3] 1,000 unit PO DAILY 07/31/20 [History] Citalopram [Citalopram HBr] 20 mg PO DAILY 07/31/20 [History] Losartan [Cozaar] 100 mg PO DAILY 07/31/20 [History] Magnesium Oxide 800 mg PO BID 07/31/20 [History] Simvastatin 40 mg PO BEDTIME 07/31/20 [History] diphenhydrAMINE [Benadryl] 50 mg PO BEDTIME PRN 07/31/20 [History] metFORMIN [Glucophage] 1,000 mg PO BIDMEALS 07/31/20 [History] Enoxaparin [Lovenox] 40 mg SUBCUT Q24H #10 syringe 08/02/20 [Rx] Referrals: Octavio Gordon NP [Ordering Only Provider] - 08/06/20 (Your appointment with your provider is a phone vist in the afternoon of the . If you have questions regarding your appointment please contact [facility]) - Discharge Summary/Plan Comment DC Time >30 min.: No - Patient Data Vitals - Most Recent: Last Vital Signs Temp 97.6 F 08/02/20 11:32 Pulse 63 08/02/20 11:32 Resp 16 08/02/20 11:32 BP 141/64 H 08/02/20 11:32 Pulse Ox 96 08/02/20 11:32 Weight - Most Recent: 209 lb 15.986 oz I&O - Last 24 hours: Intake & Output 08/01/20 08/02/20 08/02/20 22:59 06:59 14:59 Intake Total 300 Balance 300 Lab Results - Last 24 hrs: Laboratory Results - last 24 hr 08/01/20 08/01/20 08/02/20 Range/Units 16:30 21:00 05:13 WBC 3.5 L (4.5-11.0) K/uL RBC 4.36 (3.30-5.50) M/uL Hgb 11.0 L (12.0-15.0) g/dL Hct 34.5 L (36.0-48.0) % MCV 79 L (80-98) fL MCH 25 L (27-31) pg MCHC 32 (32-36) % Plt Count 106 L (150-400) K/uL Neut % (Auto) 77 H (36-66) % Lymph % (Auto) 18 L (24-44) % [place] % (Auto) 5 (2-6) % Eos % (Auto) 0 L (2-4) % Baso % (Auto) 0 (0-1) % D-Dimer, Quantitative (0.0-500.0) ng/mL Sodium (140-148) mmol/L Potassium (3.6-5.2) mmol/L Chloride (100-108) mmol/L Carbon Dioxide (21-32) mmol/L Anion Gap (5.0-14.0) mmol/L BUN (7-18) mg/dL Creatinine (0.6-1.0) mg/dL Est Cr Clr Drug Dosing mL/min Estimated GFR (MDRD) (>60) Glucose (74-106) mg/dL POC Glucose 376 H 379 H (74-106) MG/DL Calcium (8.5-10.1) mg/dL Ferritin (8-388) ng/ml Total Bilirubin (0.2-1.0) mg/dL AST (15-37) U/L ALT (12-78) U/L Alkaline Phosphatase (46-116) U/L C-Reactive Protein (0.0-0.3) mg/dL Total Protein (6.4-8.2) g/dL Albumin (3.4-5.0) g/dL Globulin (2.3-3.5) g/dL Albumin/Globulin Ratio (1.2-2.2) 08/02/20 08/02/20 08/02/20 Range/Units 05:13 05:13 05:13 WBC (4.5-11.0) K/uL RBC (3.30-5.50) M/uL Hgb (12.0-15.0) g/dL Hct (36.0-48.0) % MCV (80-98) fL MCH (27-31) pg MCHC (32-36) % Plt Count (150-400) K/uL Neut % (Auto) (36-66) % Lymph % (Auto) (24-44) % [place] % (Auto) (2-6) % Eos % (Auto) (2-4) % Baso % (Auto) (0-1) % D-Dimer, Quantitative 449.54 (0.0-500.0) ng/mL Sodium 141 (140-148) mmol/L Potassium 4.1 (3.6-5.2) mmol/L Chloride 105 (100-108) mmol/L Carbon Dioxide 28 (21-32) mmol/L Anion Gap 8.5 (5.0-14.0) mmol/L BUN 25 H (7-18) mg/dL Creatinine 0.7 (0.6-1.0) mg/dL Est Cr Clr Drug Dosing 73.41 mL/min Estimated GFR (MDRD) > 60 (>60) Glucose 337 H (74-106) mg/dL POC Glucose (74-106) MG/DL Calcium 8.1 L (8.5-10.1) mg/dL Ferritin 47 (8-388) ng/ml Total Bilirubin 0.7 (0.2-1.0) mg/dL AST 12 L (15-37) U/L ALT 23 (12-78) U/L Alkaline Phosphatase 103 (46-116) U/L C-Reactive Protein 0.98 H (0.0-0.3) mg/dL Total Protein 5.6 L (6.4-8.2) g/dL Albumin 2.6 L (3.4-5.0) g/dL Globulin 3.0 (2.3-3.5) g/dL Albumin/Globulin Ratio 0.9 L (1.2-2.2) 08/02/20 08/02/20 Range/Units 07:30 11:30 WBC (4.5-11.0) K/uL RBC (3.30-5.50) M/uL Hgb (12.0-15.0) g/dL Hct (36.0-48.0) % MCV (80-98) fL MCH (27-31) pg MCHC (32-36) % Plt Count (150-400) K/uL Neut % (Auto) (36-66) % Lymph % (Auto) (24-44) % [place] % (Auto) (2-6) % Eos % (Auto) (2-4) % Baso % (Auto) (0-1) % D-Dimer, Quantitative (0.0-500.0) ng/mL Sodium (140-148) mmol/L Potassium (3.6-5.2) mmol/L Chloride (100-108) mmol/L Carbon Dioxide (21-32) mmol/L Anion Gap (5.0-14.0) mmol/L BUN (7-18) mg/dL Creatinine (0.6-1.0) mg/dL Est Cr Clr Drug Dosing mL/min Estimated GFR (MDRD) (>60) Glucose (74-106) mg/dL POC Glucose 308 H 320 H (74-106) MG/DL Calcium (8.5-10.1) mg/dL Ferritin (8-388) ng/ml Total Bilirubin (0.2-1.0) mg/dL AST (15-37) U/L ALT (12-78) U/L Alkaline Phosphatase (46-116) U/L C-Reactive Protein (0.0-0.3) mg/dL Total Protein (6.4-8.2) g/dL Albumin (3.4-5.0) g/dL Globulin (2.3-3.5) g/dL Albumin/Globulin Ratio (1.2-2.2) Med Orders - Current: Current Medications Acetaminophen (Tylenol) 650 mg PO Q4H PRN PRN Reason: Pain (Mild 1-3)/fever Alogliptin Benzoate (Alogliptin) 25 mg PO DAILY [facility] Last Admin: 08/02/20 08:01 Dose: 25 mg Documented by: Calcium Carbonate (Caltrate 600+D 1500 Mg-400 Units) 1 tab PO DAILY [facility] Last Admin: 08/02/20 08:02 Dose: 1 tab Documented by: Cholecalciferol (Vitamin D3) 25 mcg PO DAILY [facility] Last Admin: 08/02/20 08:01 Dose: 25 mcg Documented by: Citalopram Hydrobromide (Celexa) 20 mg PO DAILY [facility] Last Admin: 08/02/20 08:02 Dose: 20 mg Documented by: Dexamethasone (Decadron) 6 mg IVPUSH Q24H [facility] Stop: 08/04/20 16:01 Last Admin: 08/01/20 16:28 Dose: 6 mg Documented by: Dextrose/Water (Dextrose 50% In Water) 50 ml IVPUSH ASDIRECTED PRN PRN Reason: Hypoglycemia Dextrose/Water (Dextrose 50% In Water) 50 ml IVPUSH ASDIRECTED PRN PRN Reason: Hypoglycemia Diphenhydramine HCl (Benadryl) 50 mg PO BEDTIME PRN PRN Reason: Allergies Enoxaparin Sodium (Lovenox) 40 mg SUBCUT Q24H [facility] Last Admin: 08/01/20 14:19 Dose: 40 mg Documented by: Glucagon (Glucagen) 1 mg IM ASDIRECTED PRN PRN Reason: Hypoglycemia Glucagon (Glucagen) 1 mg IM ASDIRECTED PRN PRN Reason: Hypoglycemia Remdesivir 100 mg/ Sodium (Chloride) 100 mls @ 100 mls/hr IV Q24H [facility] Stop: 08/04/20 14:59 Last Admin: 08/01/20 14:18 Dose: 100 mls/hr Documented by: Insulin Glargine (Lantus Solostar) 16 units SUBCUT BEDTIME [facility] Last Admin: 08/01/20 21:11 Dose: 16 units Documented by: Insulin Human Lispro (Humalog) 0 unit SUBCUT QIDACANDBED [facility]; Protocol Last Admin: 08/02/20 11:46 Dose: 8 units Documented by: Losartan Potassium (Cozaar) 100 mg PO DAILY [facility] Last Admin: 08/02/20 08:01 Dose: 100 mg Documented by: Magnesium Oxide (Magnesium Oxide) 800 mg PO BID [facility] Last Admin: 08/02/20 08:01 Dose: 800 mg Documented by: Metformin HCl (Glucophage) 1,000 mg PO BIDMEALS [facility] Last Admin: 08/02/20 07:59 Dose: 1,000 mg Documented by: Simvastatin (Zocor) 40 mg PO BEDTIME [facility] Last Admin: 08/01/20 21:13 Dose: 40 mg Documented by: Sodium Chloride (Saline Flush) 10 ml FLUSH ASDIRECTED PRN PRN Reason: Keep Vein Open Discontinued Medications Dexamethasone (Dexamethasone) 6 mg PO DAILY [facility] Last Admin: 07/31/20 08:41 Dose: 6 mg Documented by: Dexamethasone (Decadron) 6 mg IVPUSH DAILY [facility] Stop: 08/04/20 09:01 Last Admin: 07/31/20 22:51 Dose: 6 mg Documented by: Piperacillin Sod/Tazobactam (Sod 3.375 gm/ Sodium Chloride) 50 mls @ 100 mls/hr IV Q6H YULISA Piperacillin Sod/Tazobactam (Sod 3.375 gm/ Sodium Chloride) 50 mls @ 100 mls/hr IV Q6H [facility] Last Admin: 07/31/20 02:54 Dose: 100 mls/hr Documented by: Sodium Chloride (Normal Saline) Confirm Administered Dose 50 mls @ as directed .ROUTE .STK-MED ONE Stop: 07/31/20 02:47 Last Admin: 07/31/20 03:00 Dose: Not Given Documented by: Piperacillin/Tazobactam/ (Dextrose 3.375 gm/ Premix) 50 mls @ 100 mls/hr IV Q6H [facility] Last Admin: 08/01/20 10:31 Dose: 100 mls/hr Documented by: Remdesivir 200 mg/ Sodium (Chloride) 250 mls @ 250 mls/hr IV ONETIME ONE Stop: 07/31/20 14:59 Last Admin: 07/31/20 13:27 Dose: 250 mls/hr Documented by: Insulin Human Lispro (Humalog) 0 unit SUBCUT QIDACANDBED [facility]; Protocol Last Admin: 07/31/20 14:42 Dose: Not Given Documented by: Insulin Human Lispro (Humalog) 10 unit SUBCUT ONETIME ONE; Protocol Stop: 07/31/20 12:01 Last Admin: 07/31/20 12:17 Dose: 10 units Documented by: - Exam Quality Assessment: Reports: DVT Prophylaxis General: Reports: Alert, Oriented, Cooperative, No Acute Distress Lungs: Reports: Clear to Auscultation, Normal Respiratory Effort Cardiovascular: Reports: Regular Rate, Regular Rhythm, No Murmurs GI/Abdominal Exam: Soft, Non-Tender, No Organomegaly, No Distention
== END 2020-08-02 12:55 | disposition home or self-care (01) | DRG 177 ==
LOC: JP.2SS 23:08
PROVIDERS: ADMIT Family Medicine; ATTEND Hospitalist
PROC: XW033E5 Introduction of Remdesivir Anti-infective into Peripheral Vein, Percutaneous Approach, New Technology Group 5 (ICD-10-PCS; principal; 2020-07-30)
PROC: XW13325 Transfusion of Convalescent Plasma (Nonautologous) into Peripheral Vein, Percutaneous Approach, New Technology Group 5 (ICD-10-PCS; 2020-07-31)
DX: U07.1 COVID-19 (principal); J12.89 Other viral pneumonia; J96.91 Respiratory failure, unspecified with hypoxia; E11.9 Type 2 diabetes mellitus without complications; Z79.899 Other long term (current) drug therapy; Z88.2 Allergy status to sulfonamides; Z88.8 Allergy status to other drugs, medicaments and biological substances
CPT/HCPCS: 36415; 36430; 80053; 82728; 82962; 85025; 85027; 85379; 86140; 86900; 86901; 94762; A9270-GY; J1100; J1650; J1815; J1815-GY; J2543; J7050; J8540; P9017